=== PATIENT | male | born 2005 | race Caucasian/White ===

== ENCOUNTER 2025-05-16 23:07 | Emergency (ER) | payer OTHER, BC ==
[2025-05-17] MEDS ORDERED: Ketorolac Tromethamine 30 MG (1 mL) VIAL ONE (00:02)
== END 2025-05-17 00:05 | disposition home or self-care (01) ==
LOC: CSHERS 23:07
DX: L70.9 Acne, unspecified (principal)
CPT/HCPCS: 96372; 99282; J1885

== ENCOUNTER 2025-05-17 13:28 | Emergency (ER) | payer OTHER, BC ==
[~2025-05-17 13:28] MED LIST: Iopamidol 300 61% 100 ML VIAL FS ONE
[2025-05-17] MEDS ORDERED: Ketorolac Tromethamine 30 MG (1 mL) VIAL ONE (14:09)
[2025-05-17] MEDS ORDERED: Dexamethasone 10 MG/ML VIAL ONE (14:09)
[2025-05-17 14:21] LABS: #Basophils Less than 0.03 10x3/uL (0.0-0.2); #Eosinophils 0.12 10x3/uL (0.0-0.5); #Monocytes 0.67 10x3/uL (0.0-1.1); #Neutrophils 6.44 10x3/uL (1.5-8.4); %Basophils 0.2 % (0.0-2.0); %Eosinophils 1.4 % (0.0-6.0); %Lymphocytes 16.8 % (18.0-47.0); %Monocytes 7.7 % (0.0-10.0); %Neutrophils 73.6 % (40.0-75.0); Hematocrit 44.0 % (38.8-50.0); Hemoglobin 15.0 g/dL (13.5-17.5); Mean Corpuscular Hemoglobin 30.5 pg (27.0-33.0); Mean Corpuscular Volume 89.4 fL (81.2-95.1); Platelet Count 225 10x3/uL (150-450); Red Blood Cell (RBC) Count 4.92 10x6/uL (4.32-5.72); White Blood Cell (WBC) Count 8.75 10x3/uL (3.5-10.5)
[2025-05-17 14:42] LABS: ALT (SGPT) 14 U/L (Less than 45); AST (SGOT) 26 U/L (11-34); Albumin 4.5 g/dL (3.1-4.5); Alkaline Phosphatase 88 U/L (40-110); Anion Gap 11 mmol/L (10-20); BUN (Urea Nitrogen) 14 mg/dL (8.9-20.6); Bilirubin, Total 1.5 mg/dL (0.3-1.2); Calc. Creatinine Clearance 0 mL/min (70-130); Calcium 9.1 mg/dL (7.8-10.44); Carbon Dioxide 27 mmol/L (22-29); Chloride 104 mmol/L (98-107); Globulin 2.5 g/dL (2.4-3.5); Glucose 92 mg/dL (70-105); Potassium 3.9 mmol/L (3.5-5.1); Sodium 138 mmol/L (136-145)
== END 2025-05-17 15:13 | disposition home or self-care (01) ==
LOC: CSHERS 13:28
DX: K04.90 Unspecified diseases of pulp and periapical tissues (principal); L70.9 Acne, unspecified
CPT/HCPCS: 70491; 80053; 85025; 96365; 96372; 96375; 99282; J0295; J1100; J1885; Q9967

== ENCOUNTER 2025-06-28 00:31 | Emergency (ER) | payer OTHER, BC ==
[2025-06-28] MEDS ORDERED: Ketorolac Tromethamine 30 MG (1 mL) VIAL ONE (01:58)
== END 2025-06-28 03:13 | disposition home or self-care (01) ==
LOC: CSHERS 00:31
DX: L03.211 Cellulitis of face (principal); B95.62 Methicillin resistant Staphylococcus aureus infection as the cause of diseases classified elsewhere
CPT/HCPCS: 96365; 96375; J0295; J1885